=== PATIENT | female | born 2000 | race Hispanic/Latino ===

== ENCOUNTER 2022-05-02 21:14 | Emergency (ER) | payer SELFPAY ==
[2022-05-02 22:29] LABS: Urine Blood Trace-intact (Negative); Urine Glucose Negative (Negative); Urine Protein Negative (Negative); Urine Specific Gravity 1.025 (1.005-1.030)
[2022-05-02 22:30] LABS: Absolute Lymphocytes (CBC) 1.8 K/uL (0.7-4.9); Hematocrit 41.3 % (36.0-45.0); Lymphocytes % 31.7 % (15.3-44.8); MCV 88.3 fL (80-100); MPV 7.4 fL (7.6-11.3); RBC Red Blood Cell Count 4.67 M/uL (3.86-4.86)
[2022-05-02 22:35] LABS: Protime INR 1.15
[2022-05-02 22:42] LABS: Urine Specific Gravity/Preg 1.025 (1.005-1.030)
[2022-05-02 22:47] LABS: Albumin 4.1 g/dL (3.4-5.0); Bilirubin Direct 0.1 mg/dL (0-0.2); Bilirubin Total 0.5 mg/dL (0.2-1.0); Magnesium 2.1 mg/dL (1.6-2.4); Protein, Total 7.8 g/dL (6.4-8.2); Troponin High Sensitivity 4.8 pg/mL (<58.9)
[2022-05-02] MEDS ORDERED: NA CHLORIDE 0.9% 500 ML ONE (23:42)
[2022-05-02] MEDS ORDERED: KETOROLAC 30 MG/ML INJ ONE (23:42)
[2022-05-02] MEDS ORDERED: ONDANSETRON 4 MG/2 ML VIAL ONE (23:48)
--- NOTE | 2022-05-03 00:06 | ER ---
Nurse's Notes [facility] Name: Alecia Singer Age: 22 yrs Sex: Female : 2000 Arrival Date: 05/02/2022 Time: 21:16 Bed 14 Private MD: Diagnosis: Chest pain, unspecified Presentation: 05/02 21:20 Chief complaint: Patient states: "I am having chest pains under by left breast". as6 Coronavirus screen: At this time, the client does not indicate any symptoms associated with coronavirus-19. Ebola Screen: No symptoms or risks identified at this time. Initial Sepsis Screen: Does the patient meet any 2 criteria? No. Patient's initial sepsis screen is negative. Does the patient have a suspected source of infection? No. Patient's initial sepsis screen is negative. Risk Assessment: Do you want to hurt yourself or someone else? Patient reports no desire to harm self or others. Onset of symptoms was May 02, 2022. 21:20 Method Of Arrival: Ambulatory as6 21:20 Acuity: SHYLA 3 as6 Triage Assessment: 21:40 General: Appears in no apparent distress. Behavior is calm, cooperative. Pain: as6 Complains of pain in chest. Cardiovascular: Reports chest pain. 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 - Social history:: Smoking status: Reported history of juuling and/or vaping. Screenin:46 [facility] ED Fall Risk Assessment (Adult) History of falling in the last 3 months, pf1 including since admission No falls in past 3 months (0 pts) Confusion or Disorientation No (0 pts) Intoxicated or Sedated No (0 pts) Impaired Gait No (0 pts) Mobility Assist Device Used No (0 pt) Altered Elimination No (0 pt) Score/Fall Risk Level 0 - 2 = Low Risk Oriented to surroundings, Maintained a safe environment, Educated pt \\T\\ family on fall prevention, incl call for assistance when getting out of bed, Assessed \\T\\ reinforced patient's understanding of fall precautions, Provided non-skid footwear, Hourly rounding (assess needs \\T\\ fall precautionary measures) done, Used ambulatory aids as needed (educated on \\T\\ assisted with), Used gait belt as appropriate. Abuse screen: Denies threats or abuse. Nutritional screening: No deficits noted. Tuberculosis screening: No symptoms or risk factors identified. Assessment: 23:10 General: Appears in no apparent distress. comfortable, well groomed, well developed, pf1 Behavior is calm, cooperative, appropriate for age, quiet. 23:10 Pain: Complains of pain in chest Pain currently is 6 out of 10 on a pain scale. Pain pf1 began today this AM. Neuro: No deficits noted. Level of Consciousness is awake, alert, obeys commands, Oriented to person, place, time, situation. Cardiovascular: Chest pain. Respiratory: No deficits noted. Airway is patent Trachea midline Respiratory effort is even, unlabored, Respiratory pattern is regular, symmetrical. GI: Abdomen is flat, non-distended, Bowel sounds present X 4 quads. Reports nausea. : No deficits noted. EENT: No deficits noted. 23:10 Pain: Pain does not radiate. pf1 Vital Signs: 21:20 BP 129 / 81; Pulse 77; Resp 18 S; Temp 98.2(O); Pulse Ox 98% on R/A; Weight 76.2 kg as6 (R); Height 5 ft. 3 in. (160.02 cm) (R); Pain 9/10; 23:30 BP 107 / 76; Pulse 58; Resp 18; Pulse Ox 100% on R/A; Pain 6/10; pf1 05/03 00:23 BP 108 / 70; Pulse 59; Resp 18; Temp 98; Pulse Ox 100% on R/A; Pain 2/10; pf1 05/02 21:20 Body Mass Index 29.76 (76.20 kg, 160.02 cm) as6 ED Course: 05/02 21:16 Patient arrived in ED. jj6 21:24 Triage completed. as6 21:24 Arm band placed on. as6 21:25 Morgan Barbour PA is PHCP. cp 21:25 Adolfo Damon MD is Attending Physician. cp 22:20 Basic Metabolic Panel Sent. rv1 22:20 CBC with Diff Sent. rv1 22:20 D-Dimer Sent. rv1 22:20 LFT's Sent. rv1 22:21 Magnesium Sent. rv1 22:21 PT-INR Sent. rv1 22:21 Troponin HS Sent. rv1 22:29 Inserted saline lock: 20 gauge in right antecubital area, using aseptic technique. rv1 Blood collected. 23:11 Mercedes hodge, RN is Primary Nurse. pf1 23:30 Client placed on continuous cardiac and pulse oximetry monitoring. NIBP monitoring pf1 applied. groundwater monitoring technician on. 23:30 Patient has correct armband on for positive identification. Bed in low position. Call pf1 light in reach. 23:30 Patient maintains SpO2 saturation greater than 95% on room air. pf1 23:42 Urine --Ancillary (enter results) Sent. pf1 23:47 No provider procedures requiring assistance completed. pf1 03 00:22 IV discontinued, intact, bleeding controlled, No redness/swelling at site. Pressure pf1 dressing applied. Administered Medications: 05/02 23:41 Drug: Ketorolac 15 mg Route: IVP; Site: right antecubital; pf1 03 00:22 Follow up: Response: No adverse reaction; Marked relief of symptoms pf1 05/02 23:41 Drug: NS 0.9% 500 ml Route: IV; Rate: bolus; Site: right antecubital; pf1 05/03 00:22 Follow up: Response: No adverse reaction; IV Status: Completed infusion; IV Intake: pf1 500ml 05/02 23:44 Drug: Zofran (Ondansetron) 4 mg Route: IVP; Site: right antecubital; pf1 03 00:21 Follow up: Response: No adverse reaction; Nausea is decreased pf1 Medication: 00:27 VIS not applicable for this client. pf1 Intake: 00:22 IV: 500ml; Total: 500ml. pf1 Outcome: 00:05 Discharge ordered by . cp 00:23 Discharged to home ambulatory, with family. pf1 00:23 Condition: improved 00:23 Discharge instructions given to patient, Instructed on discharge instructions, follow up and referral plans. Demonstrated understanding of instructions, follow-up care, medications, Prescriptions given X 1. 00:27 Patient left the ED. pf1 Signatures: Morgan Barbour PA PA cp Jeffries, Jennifer jj6 Juan Galdamez RN RN as6 Mercedes hodge RN RN pf1 Iram Nova 1
--- NOTE | 2022-05-03 00:06 | EDPHYS ---
Physician Documentation [facility] Name: Alecia Singer Age: 22 yrs Sex: Female : 2000 Arrival Date: 05/02/2022 Time: 21:16 Bed 14 Private MD: ED Physician Adolfo Damon HPI: 05/02 21:45 This 22 yrs old Female presents to ER via Ambulatory with complaints of Chest cp Pain. 21:45 The patient or guardian reports chest pain that is located primarily in the anterior cp chest wall, left, behind left breast. The pain does not radiate. Associated signs and symptoms: The patient has no apparent associated signs or symptoms. The chest pain is described as aching. Duration: The patient or guardian reports a single episode, that is still ongoing, and unchanged. 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 - Social history:: Smoking status: Reported history of juuling and/or vaping. ROS: 21:50 Constitutional: Negative for body aches, chills, fever, poor PO intake. cp 21:50 Eyes: Negative for injury, pain, redness, and discharge. cp 21:50 ENT: Negative for drainage from ear(s), ear pain, sore throat, difficulty swallowing, difficulty handling secretions. 21:50 Cardiovascular: Positive for chest pain, Negative for edema, palpitations. 21:50 Respiratory: Negative for cough, shortness of breath, wheezing. 21:50 Abdomen/GI: Negative for abdominal pain, nausea, vomiting, and diarrhea. 21:50 Back: Negative for pain at rest, pain with movement, radiated pain. 21:50 Neuro: Negative for altered mental status, dizziness, headache, numbness, syncope, weakness. 21:50 All other systems are negative. Exam: 21:33 ECG was reviewed by the Attending Physician. cp 21:55 Constitutional: The patient appears in no acute distress, alert, awake, cp non-diaphoretic, non-toxic, well developed, well nourished. 21:55 Head/Face: Normocephalic, atraumatic. cp 21:55 Eyes: Periorbital structures: appear normal, Conjunctiva: normal, no exudate, no injection, Sclera: no appreciated abnormality, Lids and lashes: appear normal, bilaterally. 21:55 ENT: External ear(s): are unremarkable, Nose: is normal, Mouth: Lips: moist, Oral mucosa: pink and intact, moist, Posterior pharynx: is normal, airway is patent, no erythema, no exudate. 21:55 Neck: ROM/movement: is normal, is supple, without pain, no range of motions limitations. 21:55 Chest/axilla: Inspection: normal. 21:55 Cardiovascular: Rate: normal, Rhythm: regular. 21:55 Respiratory: the patient does not display signs of respiratory distress, Respirations: normal, no use of accessory muscles, no retractions, labored breathing, is not present, Breath sounds: are clear throughout, no decreased breath sounds, no stridor, no wheezing. 21:55 Abdomen/GI: Inspection: abdomen appears normal, Palpation: abdomen is soft and non-tender, in all quadrants. 21:55 Back: pain, is absent, ROM is normal. 21:55 Neuro: Orientation: to person, place \T\ time. Mentation: is normal, Motor: moves all fours, strength is normal, Sensation: is normal. Vital Signs: 21:20 BP 129 / 81; Pulse 77; Resp 18 S; Temp 98.2(O); Pulse Ox 98% on R/A; Weight 76.2 kg as6 (R); Height 5 ft. 3 in. (160.02 cm) (R); Pain 9/10; 23:30 BP 107 / 76; Pulse 58; Resp 18; Pulse Ox 100% on R/A; Pain 6/10; pf1 05/03 00:23 BP 108 / 70; Pulse 59; Resp 18; Temp 98; Pulse Ox 100% on R/A; Pain 2/10; pf1 05/02 21:20 Body Mass Index 29.76 (76.20 kg, 160.02 cm) as6 MDM: 05/02 21:36 Patient medically screened. cp 22:00 Differential diagnosis: abnormal EKG, acute myocardial infarction, chest wall pain, cp pleurisy, pneumonia, pneumothorax, pulmonary embolus. 05/03 00:05 Data reviewed: vital signs, nurses notes, lab test result(s), EKG, radiologic studies, cp plain films. 00:05 I considered the following discharge prescriptions or medication management in the emergency department Medications were administered in the Emergency Department. See MAR. Test considered but Not performed: CT: chest for pulmonary embolism. Counseling: I had a detailed discussion with the patient and/or guardian regarding: the historical points, exam findings, and any diagnostic results supporting the discharge/admit diagnosis, lab results, radiology results, to return to the emergency department if symptoms worsen or persist or if there are any questions or concerns that arise at home. Response to treatment: the patient's symptoms have markedly improved after treatment, and as a result, I will discharge patient. Special discussion: Based on the patient's history, exam, and Dx evaluation, there is no indication for emergent intervention or inpatient Tx. It is understood by the patient/guardian that if the Sx's persist or worsen they need to return immediately for re-evaluation. 03 21:38 Order name: EKG; Complete Time: 21:39 cp 05/02 21:38 Order name: EKG - Nurse/Tech; Complete Time: 21:39 cp 05/02 21:38 Order name: Urine Test (obtain specimen); Complete Time: 22:29 cp 05/02 21:38 Order name: Urine Dipstick-Ancillary (obtain specimen); Complete Time: 22:29 cp 05/02 21:52 Order name: Basic Metabolic Panel cp 05/02 21:52 Order name: CBC with Diff cp 03 21:52 Order name: D-Dimer cp 05/02 21:52 Order name: LFT's cp 05/02 21:52 Order name: Magnesium cp 05/02 21:52 Order name: PT-INR cp 05/02 21:52 Order name: Troponin HS cp 05/02 21:52 Order name: XRAY Chest (1 view) cp 05/02 21:52 Order name: Cardiac monitoring cp 03 21:52 Order name: IV Saline Lock; Complete Time: 22:21 cp 05/02 21:52 Order name: Labs collected and sent; Complete Time: 22:21 cp 05/02 21:52 Order name: O2 Per Protocol; Complete Time: 23:11 cp 05/02 21:52 Order name: O2 Sat Monitoring; Complete Time: 23:11 cp 05/02 22:29 Order name: Urine Dipstick-Ancillary; Complete Time: 23:10 EDMS 05/02 23:10 Interpretation: Normal except: UBLD Trace-intact. cp 05/02 22:32 Order name: Urine --Ancillary (enter results) ds4 05/02 22:33 Order name: CBC with Automated Diff; Complete Time: 23:10 EDMS 05/02 23:10 Interpretation: Normal except: MPV 7.4. cp 05/02 22:36 Order name: Protime (+INR); Complete Time: 23:10 EDMS 05/02 23:10 Interpretation: Reviewed. cp 05/02 22:36 Order name: D-Dimer; Complete Time: 23:10 EDMS 05/02 23:11 Interpretation: Reviewed. cp 05/02 22:42 Order name: Urine --Ancillary; Complete Time: 23:10 EDMS 05/02 22:48 Order name: Basic Metabolic Panel; Complete Time: 23:10 EDMS 05/02 22:48 Order name: Liver (Hepatic) Function; Complete Time: 23:10 EDMS 05/02 22:48 Order name: Troponin High Sensitivity; Complete Time: 23:10 EDMS 05/02 22:48 Order name: Magnesium; Complete Time: 23:10 EDMS EC/05 21:33 Rate is 76 beats/min. Rhythm is regular. NC interval is normal. QRS interval is normal. cp QT interval is normal. T waves are Inverted in lead aVR. Interpreted by me. Reviewed by me. Administered Medications: 23:41 Drug: Ketorolac 15 mg Route: IVP; Site: right antecubital; pf1 05/03 00:22 Follow up: Response: No adverse reaction; Marked relief of symptoms pf1 05/02 23:41 Drug: NS 0.9% 500 ml Route: IV; Rate: bolus; Site: right antecubital; pf1 05/03 00:22 Follow up: Response: No adverse reaction; IV Status: Completed infusion; IV Intake: pf1 500ml 05/02 23:44 Drug: Zofran (Ondansetron) 4 mg Route: IVP; Site: right antecubital; pf1 05/03 00:21 Follow up: Response: No adverse reaction; Nausea is decreased pf1 Disposition: 02:33 Co-signature as Attending Physician, Adolfo Damon MD I reviewed the patient's care sp4 provided by the Advanced Practice Provider and agree with the diagnosis and treatment plan. Disposition Summary: 05/03/22 00:05 Discharge Ordered Location: Home cp Problem: new cp Symptoms: have improved cp Condition: Stable cp Diagnosis - Chest pain, unspecified cp Followup: cp - With: Private Physician - When: 2 - 3 days - Reason: Recheck today's complaints Discharge Instructions: - Discharge Summary Sheet cp - Chest Wall Pain cp - Form - Return To Work pf1 Forms: - Medication Reconciliation Form cp - Thank You Letter cp - Antibiotic Education cp - Prescription Opioid Use cp Prescriptions: - ketorolac 10 mg Oral tablet - take 1 tablet by ORAL route every 6 hours As needed not to exceed 40 mg in cp 24hrs; 6 tablet; Refills: 0, Product Selection Permitted Signatures: Dispatcher [employer] EDUT Morgan Barbour PA PA cp Juan Galdamez RN RN as6 Mercedes hodge RN RN pf1 Adolfo Damon MD MD sp4
[2022-05-03 00:52] VITALS: O2SAT 100
[2022-05-03 00:54] VITALS: BP 108/70; TEMP 98
--- NOTE | 2022-05-03 13:27 | RAD REPORT ---
EXAM DESCRIPTION: RAD - Chest Single View - 05/02/2022 10:53 pm CLINICAL HISTORY: Chest pain.. TECHNIQUE: AP portable chest x-ray upright on 05/02/2022, at 22: 37. COMPARISON: None. FINDINGS: Heart: Normal size and configuration. Mediastinal Structures: Normal and midline.. Lung Murray: No active disease. Pulmonary Vascularity: Normal. Pleural Space: No active disease. Bony Structures: Normal. IMPRESSION: Normal study. 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 The interpreting radiologist is fully responsible for the content of the report.
--- NOTE | 2022-05-03 16:37 | EKG ---
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
== END 2022-05-03 00:27 | disposition home or self-care (01) ==
LOC: ER 21:14
DX: R07.89 Other chest pain (principal)
CPT/HCPCS: 36415; 71045; 80048; 80076; 81003; 81025; 83735; 84484; 85025; 85379; 85610; 93005; 96361; 96374; 96375; 99285; J2405; J7040

== ENCOUNTER → 2023-03-15 | Emergency (ER) | payer OTHER ==
[~2023-03-15] MED LIST: ACETAMINOPHEN 500 MG TAB ONE; CEFTRIAXONE 1000 MG/VIAL ONE; FENTANYL CITR 100 MCG/2 ML ONE; KCL 20 MEQ/100 mL IVPB 100 ML IV ONE; NA CHLORIDE 0.9% 1,000 ML ONE; NA CHLORIDE 0.9% 2,000 ML ONE; NA CHLORIDE 0.9% 250 ML ONE; NITROFURAN MACRO 100 MG CAP PO ONE; ONDANSETRON 4 MG (ODT) TAB ONE
[2023-03-15 20:09] LABS: Specific Gravity 1.028 (1.005-1.030)
[2023-03-15 20:23] LABS: Specific Gravity 1.028 (1.005-1.030); Urine Bacteria <20 /HPF (<20); Urine Bilirubin NEGATIVE (Negative); Urine Blood 2+ (Negative); Urine Clarity Extremely Turbid (Clear); Urine Color Yellow (Yellow); Urine Crystals Unidentified Few /HPF (None Seen); Urine Glucose NEGATIVE (Negative); Urine Mucus 4+ /HPF (None Seen); Urine Protein 1+ (Negative); Urine RBC 21-50 /HPF (None Seen); Urine Urobilinogen Normal (Normal); Urine WBC Clump Few /HPF (None Seen)
--- NOTE | 2023-03-15 20:36 | ER ---
Nurse's Notes [facility] Name: Alecia Singer Age: 23 yrs Sex: Female : 2000 Arrival Date: 03/15/2023 Time: 16:57 Bed 9 Private MD: Diagnosis: UTI/ Urinary tract infection, site not specified;Acute upper respiratory infection, unspecified Presentation: 03/15 17:16 Chief complaint: Patient states: she has been having fever, body aches and headache for ap3 "a few days". Patient was evaluated at an urgent care previously, and tested negative for FLU and COVID. Coronavirus screen: Client presents with at least one sign or symptom that may indicate coronavirus-19. Ebola Screen: No symptoms or risks identified at this time. Initial Sepsis Screen: Does the patient meet any 2 criteria? No. Patient's initial sepsis screen is negative. Does the patient have a suspected source of infection? No. Patient's initial sepsis screen is negative. Risk Assessment: Do you want to hurt yourself or someone else? Patient reports no desire to harm self or others. Onset of symptoms is unknown. 17:16 Method Of Arrival: Ambulatory ap3 17:16 Acuity: SHYLA 4 ap3 Triage Assessment: 17:20 General: Appears in no apparent distress. Behavior is calm, cooperative, appropriate ap3 for age. Pain: Complains of pain in head and generalized body aches. Neuro: Level of Consciousness is awake, alert, obeys commands, Oriented to person, place, time, situation, Appropriate for age Reports headache. Cardiovascular: Patient's skin is warm and dry. Respiratory: Airway is patent Respiratory effort is even, unlabored, Respiratory pattern is regular, symmetrical. Historical: - Allergies: 17:20 PENICILLINS; ap3 20:34 SULFA SULFONAMIDE ANTIBIOTICS; rv 20:34 Sulfa (Sulfonamide Antibiotics); rv - PMHx: 17:20 depressive disorder; ap3 - Immunization history:: Client reports having NOT received the Covid vaccine. Flu vaccine is not up to date. - Social history:: Smoking status: Reported history of juuling and/or vaping. Patient uses alcohol, only on a social basis. Screenin:21 [facility] ED Fall Risk Assessment (Adult) History of falling in the last 3 months, ap3 including since admission No falls in past 3 months (0 pts). Abuse screen: Denies threats or abuse. Nutritional screening: No deficits noted. Tuberculosis screening: No symptoms or risk factors identified. Vital Signs: 17:16 BP 122 / 76; Pulse 91; Resp 16; Temp 98.9(O); Pulse Ox 100% ; Weight 73.94 kg; Height 5 ap3 ft. 3 in. ; Pain 8/10; 20:02 Pulse 67; Resp 16; Temp 98.7; Pulse Ox 100% ; rv 20:16 BP 101 / 57; rv 17:16 Body Mass Index 28.87 (73.94 kg, 160.02 cm) ap3 17:16 Pain Scale: Adult ap3 [place] Coma Score: 20:02 Eye Response: spontaneous(4). Motor Response: obeys commands(6). Verbal Response: rv oriented(5). Total: 15. ED Course: 17:00 Patient arrived in ED. mr 17:02 Adele Miller FNP-C is [facility]. kb 17:02 Jhony Samuels MD is Attending Physician. kb 17:20 Triage completed. ap3 17:21 Arm band placed on right wrist. ap3 20:03 Patient has correct armband on for positive identification. Client placed on continuous rv cardiac and pulse oximetry monitoring. NIBP monitoring applied. 20:03 No provider procedures requiring assistance completed. Patient did not have IV access rv during this emergency room visit. 20:12 Urinalysis w/ reflexes Sent. oe 20:16 Daniel Dinh RN is Primary Nurse. rv Administered Medications: 21:04 Drug: Macrobid PO 100 mg PO once; administer with food Route: PO; rv 21:04 Follow up: Response: Medication administered at discharge. rv Medication: 20:03 VIS not applicable for this client. rv Outcome: 20:35 Discharged to home ambulatory, rv 20:35 Condition: good 20:35 Discharge instructions given to patient, Instructed on discharge instructions, follow up and referral plans. medication usage, Demonstrated understanding of instructions, follow-up care, medications, Prescriptions given X 1, 20:35 Discharge ordered by MD. kb 21:05 Patient left the ED. rv Signatures: Adele Miller FNP-C [employer]-Sarah Laboy, Reg Reg Justice Carpenter Amanda, ADELAIDE RN ap3 Daniel Dinh, RN RN rv
--- NOTE | 2023-03-15 20:36 | EDPHYS ---
Physician Documentation [facility] Name: Alecia Singer Age: 23 yrs Sex: Female : 2000 Arrival Date: 03/15/2023 Time: 16:57 Bed 9 Private MD: ED Physician Jhony Samuels Historical: - Allergies: 03/15 17:20 PENICILLINS; ap3 20:34 SULFA SULFONAMIDE ANTIBIOTICS; rv 20:34 Sulfa (Sulfonamide Antibiotics); rv - PMHx: 17:20 depressive disorder; ap3 - Immunization history:: Client reports having NOT received the Covid vaccine. Flu vaccine is not up to date. - Social history:: Smoking status: Reported history of juuling and/or vaping. Patient uses alcohol, only on a social basis. Vital Signs: 17:16 BP 122 / 76; Pulse 91; Resp 16; Temp 98.9(O); Pulse Ox 100% ; Weight 73.94 kg; Height 5 ap3 ft. 3 in. ; Pain 8/10; 20:02 Pulse 67; Resp 16; Temp 98.7; Pulse Ox 100% ; rv 20:16 BP 101 / 57; rv 17:16 Body Mass Index 28.87 (73.94 kg, 160.02 cm) ap3 17:16 Pain Scale: Adult ap3 Ning Coma Score: 20:02 Eye Response: spontaneous(4). Motor Response: obeys commands(6). Verbal Response: rv oriented(5). Total: 15. MDM: 17:11 Patient medically screened. kb 03/15 17:21 Order name: Flu; Complete Time: 18:34 kb 03/15 17:21 Order name: Test, Urine; Complete Time: 20:30 kb 03/15 17:21 Order name: Urinalysis w/ reflexes; Complete Time: 20:23 kb Administered Medications: 21:04 Drug: Macrobid PO 100 mg PO once; administer with food Route: PO; rv 21:04 Follow up: Response: Medication administered at discharge. rv Disposition Summary: 03/15/23 20:35 Discharge Ordered Notes: Location: Home kb Condition: Stable kb Diagnosis - UTI/ Urinary tract infection, site not specified kb - Acute upper respiratory infection, unspecified kb Followup: kb - With: Emergency Department - When: As needed - Reason: Worsening of condition Followup: kb - With: Private Physician - When: 2 - 3 days - Reason: Recheck today's complaints, Continuance of care, Re-evaluation by your physician Discharge Instructions: - Discharge Summary Sheet kb - Urinary Tract Infection, Adult, [id number] kb - Upper Respiratory Infection, Adult, [id number] kb - Viral Respiratory Infection, [id number] kb Forms: - Medication Reconciliation Form kb - Thank You Letter kb - Antibiotic Education kb - Prescription Opioid Use kb - Patient Portal Instructions kb - Leadership Thank You Letter kb Prescriptions: - Macrobid 100 mg Oral Capsule - take 1 capsule ORAL route every 12 hours for 10 days; 20 capsule; Refills: 0, kb Product Selection Permitted Signatures: Dispatcher [employer] EDAdele Joe, Radha Daniel, RN RN ap3 Daniel Dinh RN RN rv
[2023-03-15 21:29] VITALS: BP 101/57; TEMP 98.7; O2SAT 100
== END ==
LOC: ER 16:57
DX: N39.0 Urinary tract infection, site not specified (principal); J06.9 Acute upper respiratory infection, unspecified; Z88.0 Allergy status to penicillin; Z88.2 Allergy status to sulfonamides; Z28.310 Unvaccinated for COVID-19
CPT/HCPCS: 81001; 81025; 87804

== ENCOUNTER 2023-03-17 13:06 | Inpatient (IN) | payer OTHER ==
[2023-03-17 14:00] LABS: Absolute Lymphocytes (CBC) 1.2 K/uL (0.7-4.9); Hematocrit 34.3 % (36.0-45.0); Lymphocytes % 6.1 % (15.3-44.8); MCV 86.8 fL (80-100); MPV 7.6 fL (7.6-11.3); Platelets 263 thou/uL (152-406); RBC Red Blood Cell Count 3.95 M/uL (3.86-4.86)
[2023-03-17 14:01] LABS: Protime INR 1.57
[2023-03-17 14:13] LABS: Albumin 3.1 g/dL (3.4-5.0); Bilirubin Total 0.6 mg/dL (0.2-1.0); Potassium 3.1 mEq/L (3.5-5.1); Protein, Total 7.5 g/dL (6.4-8.2)
[2023-03-17 14:40] LABS: Specific Gravity 1.018 (1.005-1.030); Transitional Epithelial <5 /HPF (None Seen); Urine Bacteria <20 /HPF (<20); Urine Bilirubin NEGATIVE (Negative); Urine Blood Trace (Negative); Urine Clarity Extremely Turbid (Clear); Urine Color Yellow (Yellow); Urine Glucose NEGATIVE (Negative); Urine Mucus Slight /HPF (None Seen); Urine Protein 1+ (Negative); Urine Urobilinogen Normal (Normal); Urine pH 5.5 (5.0-7.0)
--- NOTE | 2023-03-17 15:53 | RAD REPORT ---
EXAM DESCRIPTION: CT - Abdomen Pelvis W Contrast - 03/17/2023 3:04 pm CLINICAL HISTORY: Abdominal pain/back pain COMPARISON: none. TECHNIQUE: Computed axial tomography of the abdomen pelvis was obtained. 100 cc Isovue-300 was admin istered intravenously. Oral contrast was not requested which limits evaluation of bowel and appendix All CT scans are performed using dose optimization technique as appropriate and may include automated exposure control or mA/KV adjustment according to patient size. FINDINGS: Several small low-density areas left kidney reaching the periphery consistent with inflamm ation. No abscess. Tiny nonobstructing right renal calculus The liver, spleen, pancreas, and adrenals appear unremarkable. There is no evidence of diverticulitis. Normal appendix. No adnexal mass IMPRESSION: Mild to moderate left pyelonephritis
--- NOTE | 2023-03-17 16:38 | EDPHYS ---
Physician Documentation [facility] Name: Alecia Singer Age: 23 yrs Sex: Female : 2000 Arrival Date: 03/17/2023 Time: 13:06 Bed 10 Private MD: ED Physician Morgan Alvares HPI: 03/17 13:25 This 23 yrs old Female presents to ER via Ambulatory with complaints of Flu cp Symptoms. 13:25 The patient presents with pain that is acute. cp 13:25 The symptoms are located in the mid and low back. Associated signs and symptoms: cp Pertinent positives: fever, headache. Severity of symptoms: in the emergency department the symptoms are unchanged, despite home interventions. The patient has been recently seen at the [facility] Emergency Department, yesterday, for similar complaints diagnosed with UTI and prescribed antibiotic. Historical: - Allergies: 13:55 PENICILLINS; iw 13:55 Sulfa (Sulfonamide Antibiotics); iw - Home Meds: 13:55 fluoxetine 20 mg Oral cap 1 cap once daily [Active]; iw - PMHx: 13:55 depressive disorder; iw ROS: 13:30 Constitutional: Positive for body aches, chills, fever, cp 13:30 Eyes: Negative for injury, pain, redness, and discharge, cp 13:30 ENT: Negative for drainage from ear(s), ear pain, sore throat, difficulty swallowing, difficulty handling secretions, 13:30 Neck: Positive for pain with movement, pain at rest, Negative for stiffness, 13:30 Respiratory: Negative for cough, shortness of breath, wheezing, 13:30 Abdomen/GI: Positive for nausea and vomiting, Negative for diarrhea, constipation, 13:30 Back: Positive for pain at rest, pain with movement, 13:30 Neuro: Positive for headache, Negative for altered mental status, cp 13:30 All other systems are negative, Exam: 13:35 Constitutional: The patient appears in no acute distress, alert, awake, non-toxic, well cp developed, well nourished, obviously ill, 13:35 Head/Face: Normocephalic, atraumatic. cp 13:35 Eyes: Periorbital structures: appear normal, Conjunctiva: normal, no exudate, no injection, Sclera: no appreciated abnormality, Lids and lashes: appear normal, bilaterally, 13:35 ENT: External ear(s): are unremarkable, Nose: is normal, Mouth: Lips: moist, Oral mucosa: pink and intact, moist, Posterior pharynx: Airway: no evidence of obstruction, patent, 13:35 Neck: ROM/movement: is normal, is supple, no meningismus, no nuchal rigidity, 13:35 Chest/axilla: Inspection: normal, 13:35 Cardiovascular: Rate: tachycardic, Rhythm: regular, Edema: is not appreciated, JVD: is not appreciated, 13:35 Respiratory: the patient does not display signs of respiratory distress, Respirations: normal, no use of accessory muscles, no retractions, labored breathing, is not present, Breath sounds: are clear throughout, no decreased breath sounds, no stridor, no wheezing, 13:35 Abdomen/GI: Inspection: abdomen appears normal, Palpation: abdomen is soft and cp non-tender, in all quadrants, 13:35 Back: CVA tenderness, that is moderate, is noted bilaterally, cp 13:35 Skin: cellulitis, is not appreciated, no rash present. 13:35 Neuro: Orientation: to person, place \T\ time. Mentation: is normal, Motor: moves all fours, strength is normal, Sensation: is normal, 14:35 ECG was reviewed by the Attending Physician. cp Vital Signs: 13:18 BP 121 / 69; Pulse 116; Resp 20; Temp 103.1; Pulse Ox 100% ; Weight 73.48 kg; Height 5 bc6 ft. 2 in. ; 14:44 BP 110 / 61; Pulse 105; Resp 16; Temp 98.3(O); Pulse Ox 100% on R/A; Pain 10/10; iw 17:00 BP 113 / 67; Pulse 95; Resp 16; Temp 98.5(TE); Pulse Ox 100% on R/A; iw 13:18 Body Mass Index 29.63 (73.48 kg, 157.48 cm) bc6 14:44 Pain Scale: Adult iw MDM: 13:30 Patient medically screened. cp 16:00 Data reviewed: vital signs, nurses notes, lab test result(s), radiologic studies, CT cp scan. 16:00 Management of patient was discussed with the following: Hospitalist: Iván Fink NP cp will admit to DR Pérez after discussion. I considered the following discharge prescriptions or medication management in the emergency department Medications were administered in the Emergency Department. See MAR. Counseling: I had a detailed discussion with the patient and/or guardian regarding the historical points, exam findings, and any diagnostic results supporting the discharge/admit diagnosis, lab results, radiology results. 03/17 13:21 Order name: Blood Culture Adult (2) cp 03/17 13:21 Order name: CBC with Diff cp 03/17 14:45 Interpretation: Normal except: WBC 19.80; HGB 11.6; HCT 34.3; JAZZMINE% 86.6; LYM% 6.1; NEUT cp A 17.2; MNA 1.4. 03/17 13:21 Order name: CMP; Complete Time: 14:45 cp 03/17 13:21 Order name: Lactate w/ 2H reflex if indic.; Complete Time: 14:45 cp 03/17 13:21 Order name: Protime (+inr); Complete Time: 14:45 cp 03/17 13:21 Order name: Urinalysis w/ reflexes; Complete Time: 14:45 cp 03/17 13:21 Order name: COVID-19 SARS RT PCR; Complete Time: 14:45 cp 03/17 14:47 Order name: Urine Culture EDMS 03/17 14:46 Order name: CT Abd/Pelvis - IV Contrast Only; Complete Time: 15:58 cp 03/17 15:58 Interpretation: Report reviewed. 03/17 13:21 Order name: EKG; Complete Time: 13:21 cp 03/17 13:21 Order name: Accucheck; Complete Time: 14:45 cp 03/17 13:21 Order name: EKG - Nurse/Tech; Complete Time: 14:30 cp 03/17 13:21 Order name: IV Saline Lock - Large Bore; Complete Time: 13:49 cp 03/17 13:21 Order name: Labs collected and sent; Complete Time: 13:49 cp 03/17 13:21 Order name: O2 Per Protocol; Complete Time: 13:49 cp 03/17 13:21 Order name: O2 Sat Monitoring; Complete Time: 13:49 cp 03/17 13:21 Order name: Vital Signs; Complete Time: 14:14 cp EC:35 Rate is 108 beats/min. Rhythm is regular. SD interval is normal. QRS interval is cp normal. QT interval is normal. Interpreted by me. Reviewed by me. Administered Medications: 13:40 Drug: Ondansetron PO 4 mg PO once Route: PO; iw 13:40 Drug: Acetaminophen PO 1000 mg PO once Route: PO; iw 18:08 Follow up: Response: No adverse reaction; Temperature is decreased iw 14:14 Drug: NS 0.9% IV (30 ml/kg) 30 ml/kg IV at bolus once; Sepsis Protocol Route: IV; Rate: iw bolus; Site: right antecubital; 17:00 Follow up: IV Status: Completed infusion iw 15:01 Drug: fentaNYL (PF) IVP 25 mcg IVP once Route: IVP; Site: right antecubital; iw 18:09 Follow up: Response: No adverse reaction; Pain is decreased iw 15:10 Drug: Rocephin IV 1 grams IV at calculated rate once; Given slow IV push per pharmacy iw instructions Route: IV; Rate: calculated rate; Site: right antecubital; 15:15 Follow up: IV Status: Completed infusion iw 17:47 Drug: Potassium Chloride IV 20 mEq IV at calculated rate once; administer over 1-2 iw hours Route: IV; Rate: calculated rate; Site: right antecubital; 17:47 Drug: NS 0.9% IV 1000 ml IV at 150 ml/hr continuous Route: IV; Rate: 150 ml/hr; Site: iw right antecubital; Disposition Summary: 03/17/23 16:37 Hospitalization Ordered Notes: Hospitalization Status: Inpatient Admission cp Provider: Tong Pérez cp Location: Telemetry/MedSurg (Inpatient) cp Condition: Stable cp Problem: new cp Symptoms: have improved cp Bed/Room Type: Standard cp Room Assignment: 408(03/17/23 18:16) iw Diagnosis - Pyelonephritis acute cp - Nausea with vomiting, unspecified cp - Fever, unspecified cp Forms: - Medication Reconciliation Form cp - SBAR form cp - Leadership Thank You Letter cp Signatures: Dispatcher [employer] Jeanette Lee RN RN iw Iván Fink, PRODUCTION CONTROL ANALYST-C PRODUCTION CONTROL ANALYST-Cla1 Morgan Barbour PA PA cp Melodie Hernandez6 Corrections: (The following items were deleted from the chart) 17:11 13:21 Cardiac monitoring ordered. cp iw 17:31 16:37 cp bc6 18:16 17:31 414 bc6 iw
--- NOTE | 2023-03-17 16:38 | ER ---
Nurse's Notes [facility] Name: Alecia Singer Age: 23 yrs Sex: Female : 2000 Arrival Date: 03/17/2023 Time: 13:06 Bed 10 Private MD: Diagnosis: Pyelonephritis acute;Nausea with vomiting, unspecified;Fever, unspecified Presentation: 03/17 13:22 Chief complaint: Patient states: headache, neck pain, back pain , joints are hurting , iw fever , started Tuesday , was seen here yesterday and was negative for flu/covid , had a uti, taking ibuprofen and tylenol and macrobid for UTI. Coronavirus screen: At this time, the client does not indicate any symptoms associated with coronavirus-19. Ebola Screen: Patient negative for fever greater than or equal to 101.5 degrees Fahrenheit, and additional compatible Ebola Virus Disease symptoms Patient denies exposure to infectious person. Patient denies travel to an Ebola-affected area in the 21 days before illness onset. No symptoms or risks identified at this time. 13:22 Method Of Arrival: Ambulatory iw 13:22 Acuity: SHYLA 3 iw Historical: - Allergies: 13:55 PENICILLINS; iw 13:55 Sulfa (Sulfonamide Antibiotics); iw - Home Meds: 13:55 fluoxetine 20 mg Oral cap 1 cap once daily [Active]; iw - PMHx: 13:55 depressive disorder; iw Screenin:47 [facility] ED Fall Risk Assessment (Adult) Score/Fall Risk Level 0 - 2 = Low Risk. Abuse iw screen: Denies threats or abuse. Denies injuries from another. Nutritional screening: No deficits noted. Tuberculosis screening: No symptoms or risk factors identified. Assessment: 14:46 Reassessment: Patient appears in no apparent distress at this time. Patient and/or iw family updated on plan of care and expected duration. Pain level reassessed. pt c/o headache /10, temp normalized , pillow given Core Page PA notified of pt pain. 16:03 Reassessment: Patient appears in no apparent distress at this time. Patient and/or iw family updated on plan of care and expected duration. Pain level reassessed. Patient is alert, oriented x 3, equal unlabored respirations, skin warm/dry/pink. Patient states feeling better. Patient states symptoms have improved. 18:07 Reassessment: Patient appears in no apparent distress at this time. Patient and/or iw family updated on plan of care and expected duration. Pain level reassessed. Patient is alert, oriented x 3, equal unlabored respirations, skin warm/dry/pink. Pain: Complains of pain in head. Vital Signs: 13:18 BP 121 / 69; Pulse 116; Resp 20; Temp 103.1; Pulse Ox 100% ; Weight 73.48 kg; Height 5 bc6 ft. 2 in. ; 14:44 BP 110 / 61; Pulse 105; Resp 16; Temp 98.3(O); Pulse Ox 100% on R/A; Pain 10/10; iw 17:00 BP 113 / 67; Pulse 95; Resp 16; Temp 98.5(TE); Pulse Ox 100% on R/A; iw 13:18 Body Mass Index 29.63 (73.48 kg, 157.48 cm) bc6 14:44 Pain Scale: Adult iw ED Course: 13:08 Patient arrived in ED. rg4 13:08 Morgan Barbour PA is PHCP. cp 13:08 Bhargav Lowe is Attending Physician. cp 13:08 Morgan Alvares MD is Attending Physician. cp 13:24 Triage completed. iw 13:30 Jeanette Wolfe, RN is Primary Nurse. iw 14:02 Inserted saline lock: 20 gauge in right antecubital area, using aseptic technique. ls5 Blood collected. 14:46 Patient has correct armband on for positive identification. Provided Education on: . iw Pulse ox on. NIBP on. 15:05 CT Abd/Pelvis - IV Contrast Only In Process Unspecified. EDMS 16:36 Tong Pérez MD is Hospitalizing Provider. cp 18:08 No provider procedures requiring assistance completed. iw Administered Medications: 13:40 Drug: Ondansetron PO 4 mg PO once Route: PO; iw 13:40 Drug: Acetaminophen PO 1000 mg PO once Route: PO; iw 18:08 Follow up: Response: No adverse reaction; Temperature is decreased iw 14:14 Drug: NS 0.9% IV (30 ml/kg) 30 ml/kg IV at bolus once; Sepsis Protocol Route: IV; Rate: iw bolus; Site: right antecubital; 17:00 Follow up: IV Status: Completed infusion iw 15:01 Drug: fentaNYL (PF) IVP 25 mcg IVP once Route: IVP; Site: right antecubital; iw 18:09 Follow up: Response: No adverse reaction; Pain is decreased iw 15:10 Drug: Rocephin IV 1 grams IV at calculated rate once; Given slow IV push per pharmacy iw instructions Route: IV; Rate: calculated rate; Site: right antecubital; 15:15 Follow up: IV Status: Completed infusion iw 17:47 Drug: Potassium Chloride IV 20 mEq IV at calculated rate once; administer over 1-2 iw hours Route: IV; Rate: calculated rate; Site: right antecubital; 17:47 Drug: NS 0.9% IV 1000 ml IV at 150 ml/hr continuous Route: IV; Rate: 150 ml/hr; Site: iw right antecubital; Outcome: 16:37 Decision to Hospitalize by Provider. cp 18:27 Patient left the ED. iw Signatures: Dispatcher [employer] EDJeanette Bermudez RN RN iw Morgan Barbour PA PA Mariola Gates rg4 Morales Schwab ls5 Melodie Hernandez 6 Corrections: (The following items were deleted from the chart) 17:03 17:00 BP 113 / 67; Pulse 95bpm; Resp 16bpm; Pulse Ox 100% RA; iw iw
--- NOTE | 2023-03-17 17:07 | P.HP ---
Certification for Inpatient Patient admitted to: Inpatient With expected LOS: >2 Midnights Patient will require the following post-hospital care: None Practitioner: I am a practitioner with admitting privileges, knowledge of patient current condition, hospital course, and medical plan of care. Services: Services provided to patient in accordance with Admission requirements found in Title 42 Section 412.3 of the Code of Federal Regulations <Iván Fink Fozia Gan - Last Filed: 03/17/23 17:05> Patient History Date of Service: 03/17/23 Reason for admission: Sepsis, pyelonephritis History of Present Illness: 23-year-old otherwise healthy female presents emergency department chief complaint of fevers, malaise. She reports has been running fevers since Tuesday Tmax 103, denies urinary symptoms did have some upper respiratory symptoms earlier in the week. She was seen in the emergency department on 03/15/2023 and prescribed Macrobid for urinary tract infection. She presented again today feeling worse with high fevers. She was evaluated in the emergency department today her labs are significant for leukocytosis white blood cell count 19.8 potassium 3.1 urinalysis concerning for urinary tract infection negative for COVID. CT abdomen pelvis with IV contrast was performed with close concerning for suspected mild to moderate left-sided abdominal. Initial lactate was 1.2 and blood cultures were obtained prior to antibiotic administration. Patient admitted for sepsis, left-sided pyelonephritis. - Past Medical/Surgical History -: None -: Tonsillectomy Psychosocial/ Personal History: Works with the [employer], lives at home with family - Family History Family History: Reviewed- Non-Contributory - Social History Smoking Status: Never smoker Alcohol use: Yes CD- Drugs: No Caffeine use: Yes Place of Residence: Home <Iván Fink - Last Filed: 03/17/23 17:05> Date of Service: 03/17/23 <Tong Pérez - Last Filed: 03/17/23 22:30> Review of Systems 10-point ROS is otherwise unremarkable General: Fever, Chills, Malaise Musculoskeletal: Back Pain <Iván Fink - Last Filed: 03/17/23 17:05> Physical Examination - Physical Exam General: Alert, In no apparent distress, Oriented x3 HEENT: Atraumatic, PERRLA Neck: Supple, 2+ carotid pulse no bruit, No LAD Respiratory: Clear to auscultation bilaterally, Normal air movement Cardiovascular: Regular rate/rhythm, Normal S1 S2 Gastrointestinal: Normal bowel sounds, Tenderness (Mild bilateral CVA tenderness) Musculoskeletal: No tenderness Integumentary: No rashes Neurological: Normal speech, Normal strength at 5/5 x4 extr, Normal tone, Normal affect - Studies Laboratory Data (last 24 hrs) 03/17/23 03/17/23 03/17/23 13:45 13:45 13:45 WBC 19.80 H Hgb 11.6 L Hct 34.3 L Plt Count 263 PT 17.0 H INR 1.57 Sodium 138 Potassium 3.1 L BUN 7 Creatinine 0.88 Glucose 109 H Total Bilirubin 0.6 AST 20 ALT 26 Alkaline Phosphatase 62 <Iván Fink - Last Filed: 03/17/23 17:05> - Studies Laboratory Data (last 24 hrs) 03/17/23 03/17/23 03/17/23 13:45 13:45 13:45 WBC 19.80 H Hgb 11.6 L Hct 34.3 L Plt Count 263 PT 17.0 H INR 1.57 Sodium 138 Potassium 3.1 L BUN 7 Creatinine 0.88 Glucose 109 H Total Bilirubin 0.6 AST 20 ALT 26 Alkaline Phosphatase 62 <Tong Pérez - Last Filed: 03/17/23 22:30> Assessment and Plan - Plan Assessment: Sepsis secondary to left-sided pyelonephritis Hypokalemia Plan: Sepsis secondary to left-sided pyelonephritis Lactate less than 2, currently no hypotension continue IV fluids Blood cultures obtained in ED before antibiotic administration continue empiric antibioticsRocephin follow blood cultures Hypokalemia Repleted in ED Potassium protocol placed DVT PPX: Lovenox Code status: Full Discharge Plan: Home Plan to discharge in: 72 Hours - Advance Directives Does patient have a Living Will: No Does patient have a Durable POA for Healthcare: No - Code Status/Comfort Care Code Status Assessed: Yes (Full code) Critical Care: No Time Spent Managing Pts Care (In Minutes): 70 <Iván Fink - Last Filed: 03/17/23 17:05> - Plan Patient seen and examined in ED with MAIL DELIVERER Danae. Plan of care reviewed and agree as noted above. sepsis secondary to pyelo, no obstruction empiric rocephin for now; no prior h/o UTIs, denies any other PMH cultures obtained in ED unfortunately no culture was sent from [facility] 2 days ago anticipate dc home in ~2-3 days - once symptoms improve / afebrile, and have culture sensitivities <Tong Pérez - Last Filed: 03/17/23 22:30>
[2023-03-17] MEDS: NA CHLORIDE 0.9% 1,000 ML IV SCH (19:16)
[2023-03-17 19:32] VITALS: BMI 28.7
[2023-03-17] MEDS: HYDROCODONE/APAP 5/325 MG TAB PO PRN (19:50)
[2023-03-17 19:51] LABS: Blood Morphology Comment NOT SEEN (NOT SEEN); Platelet Estimate ADEQ; White Blood Cell Scan OK (OK)
[2023-03-17] MEDS: CEFTRIAXONE 2,000 MG in NA CHLORIDE 0.9% 100 ML IV SCH (20:13)
[2023-03-17] MEDS: ACETAMINOPHEN 325 MG TABLET PO PRN (21:38)
[2023-03-18] MEDS: NA CHLORIDE 0.9% 1,000 ML IV SCH ×5 (01:49→23:32)
[2023-03-18] MEDS: ACETAMINOPHEN 325 MG TABLET PO PRN ×2 (01:49→15:38)
[2023-03-18] MEDS: HYDROCODONE/APAP 5/325 MG TAB PO PRN ×4 (02:05→23:00)
[2023-03-18 05:20] LABS: Absolute Lymphocytes (CBC) 1.7 K/uL (0.7-4.9); Hematocrit 25.6 % (36.0-45.0); Lymphocytes % 10.7 % (15.3-44.8); MCV 86.9 fL (80-100); MPV 7.6 fL (7.6-11.3); Platelets 207 thou/uL (152-406); RBC Red Blood Cell Count 2.94 M/uL (3.86-4.86)
[2023-03-18 05:27] LABS: Magnesium 1.5 mg/dL (1.6-2.4)
[2023-03-18] MEDS ORDERED: Magnesium Sulfate 2gm IVPB 2 G/50 ML BAG IV ONE (06:33)
[2023-03-18 07:51] LABS: Ferritin 151.9 ng/mL (8-388); Transferrin 139 mg/dL (200-360)
[2023-03-18 07:52] LABS: Iron < 10.0 ug/dL (50-170)
[2023-03-18] MEDS ORDERED: POTASSIUM CL SA 10 MEQ TAB PO ONE ×2 (09:00→16:46)
[2023-03-18] MEDS ORDERED: MELATONIN 5 MG TABLET PO PRN (09:04)
[2023-03-18] MEDS: ENOXAPARIN 40 MG/0.4 ML SQ SCH (09:08)
[2023-03-18] MEDS: CEFTRIAXONE 2,000 MG in NA CHLORIDE 0.9% 100 ML IV SCH (09:08)
--- NOTE | 2023-03-18 13:18 | P.PN ---
Date of Service: 03/18/23 Subjective: Still having nausea, fevers overnight ROS: 10 point ROS as noted above, otherwise negative Physical exam GEN: Alert, oriented, NAD HEENT: Normal conjunctiva, sclera anicteric CV: Regular rate and rhythm, no edema Pulm: Nonlabored respirations on room air ABD: Soft, nontender, nondistended MSK: No joint tenderness Integumentary: No rashes Neuro: Normal speech, normal affect Vitals reviewed Assessment: Sepsis secondary to left-sided pyelonephritis Hypokalemia Iron deficiency anemia Plan: Sepsis secondary to left-sided pyelonephritis Lactate less than 2, currently no hypotension continue IV fluids Blood cultures obtained in ED before antibiotic administration continue empiric antibioticsRocephin follow blood cultures and urine cultures Hypokalemia Repleted in ED Potassium protocol placed Iron deficiency anemia Reports heavy menstrual cycles Hemoglobin today is 9.0 Iron levels less than 10, TIBC 195, transferrin 139, transferrin sat 5.1 Will hold off on starting iron until out of the acute infectious phase DVT PPX: Lovenox Code status: Full Discharge Plan: Home Plan to discharge in: 48 Hours Time Spent Managing Pts Care (In Minutes): 35 still having nausea <Iván Fink - Last Filed: 03/18/23 13:16> patient seen and examined on rounds with NUCLEAR POWERPLANT MECHANIC HELPER Danae this morning feels slightly better continues with fever leukocytosis improving renal fxn stable/normal noted to be anemic; pt reports heavy menses history workup consistent with severe iron deficiency continue rocephin, f/u cultures <Tong Pérez - Last Filed: 03/18/23 22:55>
[2023-03-18] MEDS: MORPHINE 2 MG/ML SYR IV PRN ×2 (14:00→19:55)
[2023-03-18] MEDS: ONDANSETRON 4 MG/2 ML VIAL IV PRN ×2 (14:06→19:55)
[2023-03-19] MEDS: ACETAMINOPHEN 325 MG TABLET PO PRN (02:54)
[2023-03-19] MEDS: ONDANSETRON 4 MG/2 ML VIAL IV PRN (03:13)
[2023-03-19] MEDS ORDERED: ALBUTEROL 2.5 MG/3 ML NEB SOL NEB ONE (04:04)
[2023-03-19] MEDS ORDERED: IPRATROPIUM BROM 0.5MG/2.5ML NEB ONE (04:06)
[2023-03-19] MEDS: NA CHLORIDE 0.9% 1,000 ML IV SCH (06:16)
[2023-03-19] MEDS ORDERED: NA CHLORIDE 0.9% 1,000 ML IV SCH (06:48)
[2023-03-19 06:59] LABS: Absolute Lymphocytes (CBC) 1.3 K/uL (0.7-4.9); Lymphocytes % 8.3 % (15.3-44.8); MCV 86.6 fL (80-100); MPV 7.7 fL (7.6-11.3); Platelets 275 thou/uL (152-406); RBC Red Blood Cell Count 3.23 M/uL (3.86-4.86)
[2023-03-19 07:14] LABS: Magnesium 1.8 mg/dL (1.6-2.4); Potassium 3.2 mEq/L (3.5-5.1)
--- NOTE | 2023-03-19 08:38 | RAD REPORT ---
[facility] 5[facility]13 am CLINICAL HISTORY: short of breath COMPARISON: Chest Single View dated 05/02/2022 TECHNIQUE: Portable AP view of the chest. FINDINGS: Confluent patchy right mid to lower lung airspace opacities. No pneumothorax or sizable e ffusion. The cardiomediastinal contours are unremarkable. IMPRESSION: Confluent right mid to lower lung airspace opacities as above concerning for pneumonia.
[2023-03-19] MEDS ORDERED: ALBUTEROL 2.5 MG/3 ML NEB SOL NEB PRN (08:40)
[2023-03-19] MEDS ORDERED: IBUPROFEN 400 MG TAB PO PRN (08:40)
[2023-03-19] MEDS: HYDROCODONE/APAP 5/325 MG TAB PO PRN ×2 (10:24→22:34)
[2023-03-19] MEDS: ENOXAPARIN 40 MG/0.4 ML SQ SCH (10:24)
[2023-03-19] MEDS ORDERED: POTASSIUM CL SA 10 MEQ TAB PO ONE ×2 (11:55→18:14)
--- NOTE | 2023-03-19 12:29 | P.PN ---
Date of Service: 03/19/23 Subjective: Still having nausea, fevers overnight C/O cough overnight, needing NC 02 ROS: 10 point ROS as noted above, otherwise negative Physical exam GEN: Alert, oriented, NAD HEENT: Normal conjunctiva, sclera anicteric CV: Regular rate and rhythm, no edema Pulm: Nonlabored respirations on NC 02 ABD: Soft, nontender, nondistended MSK: No joint tenderness Integumentary: No rashes Neuro: Normal speech, normal affect Vitals reviewed Assessment: Sepsis secondary to left-sided pyelonephritis Acute hypoxic respiratory failure secondary to right-sided pneumonia Hypokalemia Iron deficiency anemia Plan: Sepsis secondary to left-sided pyelonephritis Lactate less than 2, currently no hypotension continue empiric antibioticsRocephin Blood cultures with no growth to date Urine culture pending Still with fevers Acute hypoxic respiratory failure secondary to right-sided pneumonia Chest x-ray with right-sided pneumonia CT chest on admission without signs pneumonia present Denies aspiration/vomiting Does report lying on the right side primarily and did receive IV fluids-possibly contributing Zithromax added, continue Rocephin Blood cultures with no growth to date Urine culture pending Hypokalemia Repleted in ED Potassium protocol placed Iron deficiency anemia Reports heavy menstrual cycles Hemoglobin today is 9.0 Iron levels less than 10, TIBC 195, transferrin 139, transferrin sat 5.1 Will hold off on starting iron until out of the acute infectious phase DVT PPX: Lovenox Code status: Full Discharge Plan: Home Plan to discharge in:2-3 days Time Spent Managing Pts Care (In Minutes): 35 still having nausea <Iván Fink - Last Filed: 03/19/23 12:27> Patient seen and examined on rounds this morning with STRUCTURAL IRON WORKER Danae overnight with increased cough and shortness of breath, noted to be mildly hypoxic on room air and placed on NC with improvement pt reports h/o asthma / reactive airway disease feeling better this morning already CXR noted RML/RLL opacities, concerning for pneumonia pt states she has noticed increased swelling of hands/feet and has favored laying on right side most of time suspect multifactorial - secondary to overload from IVF and component of possible pneumonia check CT for further eval, include abd as well given increased frequency of fevers and plateauing of leukocytosis <Tong Pérez - Last Filed: 03/19/23 22:34>
[2023-03-19] MEDS: AZITHROMYCIN IV 500 MG in NA CHLORIDE 0.9% 250 ML IVPB SCH (13:02)
[2023-03-19] MEDS: CEFTRIAXONE 2,000 MG in NA CHLORIDE 0.9% 100 ML IV SCH (13:02)
--- NOTE | 2023-03-19 17:05 | RAD REPORT ---
EXAM DESCRIPTION: CT - Chest Abdomen W Con - 03/19/2023 3:56 pm CLINICAL HISTORY: persistent fever, R/O pna/renal abscess COMPARISON: Abdomen Pelvis W Contrast dated 03/17/2023; Chest Single View dated 03/19/2023 TECHNIQUE: Thin axial CT images of the chest, and abdomen, performed following intravenous administr ation of 100mL Isovue-300. Multiplanar reformats were generated and reviewed. All CT scans are performed using dose optimization technique as appropriate and may include automated exposure control or mA/KV adjustment according to patient size. FINDINGS: Patchy alveolar opacities involving the central aspect of the right lung lobes and medial left basilar and posterior lower lobe. Moderate right and small left pleural effusions.No pericardial effusion.No intrathoracic adenopathy. Heart is normal in size The liver, spleen, pancreas, and adrenal glands are within normal limits. Stable patchy cortical hypo attenuation within the left kidney. Nonobstructive right lower renal pole 2 mm calculus again seen. N onspecific mild gallbladder wall edema. No bowel obstruction, free air, free fluid or abscess. Normal appendix. No pathologic lymphadenopath y in the abdomen or pelvis. No worrisome osseous finding. IMPRESSION: Patchy bilateral central predominant alveolar opacities worse on the right. Moderate rig ht and small left pleural effusions. Findings are compatible with multifocal pneumonia. Nonspecific mild gallbladder wall edema. This may be reactive or indicative of some fluid overload. P lease correlate clinically for acute cholecystitis. Persistent left renal cortical areas of hypoattenuation compatible with pyelonephritis. 2 mm right lo wer renal pole calculus. No evidence of obstruction.
[2023-03-19] MEDS ORDERED: FUROSEMIDE 20 MG/ 2ML VIAL IV ONE (17:23)
[2023-03-20] MEDS: HYDROCODONE/APAP 5/325 MG TAB PO PRN (06:14)
[2023-03-20 06:58] LABS: Absolute Lymphocytes (CBC) 1.3 K/uL (0.7-4.9); Hematocrit 27.3 % (36.0-45.0); Lymphocytes % 16.7 % (15.3-44.8); MCV 86.5 fL (80-100); MPV 7.9 fL (7.6-11.3); Platelets 287 thou/uL (152-406); RBC Red Blood Cell Count 3.16 M/uL (3.86-4.86)
[2023-03-20 07:13] LABS: Magnesium 1.8 mg/dL (1.6-2.4); Potassium 3.6 mEq/L (3.5-5.1)
--- NOTE | 2023-03-20 07:33 | RAD REPORT ---
EXAM DESCRIPTION: RAD - Chest Single View - 03/20/2023 6:45 am CLINICAL HISTORY: eval pneumonia, volume status COMPARISON: Chest Single View dated 03/19/2023; Chest Single View dated 05/02/2022; Chest Abdomen W Con dated 03/19/2023 FINDINGS: Lines: None. Lungs: Mild improved aeration of the right lung compared with 03/19/2023. Pleural: Small right effusion likely still remains. Cardiac: The heart size is within normal limits. Mediastinum: Within normal limits. Bones: No acute fractures. Other: None IMPRESSION: Mild improved aeration of the right lower lung compared with 03/19/2023.
[2023-03-20] MEDS ORDERED: POTASSIUM CL SA 10 MEQ TAB PO ONE (08:01)
[2023-03-20] MEDS ORDERED: MAGNESIUM SULFATE 1 gm IVPB 1 GM/100 ML BAG IV ONE (08:02)
[2023-03-20] MEDS: ENOXAPARIN 40 MG/0.4 ML SQ SCH (08:22)
[2023-03-20] MEDS ORDERED: NA CHLORIDE 0.9% 100 ML ONE (08:35)
[2023-03-20] MEDS: CEFTRIAXONE 2,000 MG in NA CHLORIDE 0.9% 100 ML IV SCH (10:13)
[2023-03-20] MEDS: AZITHROMYCIN IV 500 MG in NA CHLORIDE 0.9% 250 ML IVPB SCH (10:48)
[2023-03-20] MEDS ORDERED: AZITHROMYCIN 250 MG TAB PO SCH (11:50)
[2023-03-20] MEDS: levoFLOXacin 750 MG TAB PO SCH (12:09)
[2023-03-20] MEDS: DULERA 200/5 (MOMETASONE/FORMOTEROL) INHALER IH SCH ×2 (12:19→20:36)
--- NOTE | 2023-03-20 12:21 | P.CNS ---
Date of Consult: 03/20/23 Reason for Consult: Right lower lobe pneumonia Chief Complaint: Right lower lobe pneumonia History of Present Illness: Patient is 23 years of age started developing a fever came to the emergency room and was discharged with a diagnosis of UTI did not feel better came back again. Found to have a right lower lobe pneumonia she has poorly controlled asthma vapes at home does not use any bronchodilators planing of cough congestion Allergies Penicillins Adverse Reaction (Verified 03/17/23 19:24) Hives Sulfa (Sulfonamide Antibiotics) Adverse Reaction (Verified 03/17/23 19:26) Hives - Past Medical/Surgical History -: None -: Tonsillectomy Psychosocial/ Personal History: Works with the [employer], lives at home with family - Social History Alcohol use: No CD- Drugs: No Caffeine use: No Place of Residence: Home Review of Systems General: Weakness Respiratory: Cough, Shortness of Breath Physical Examination Temp Pulse Resp BP Pulse Ox 99.2 F 89 19 120/57 L 96 03/20/23 08:00 03/20/23 08:00 03/20/23 08:00 03/20/23 08:00 03/20/23 08:00 General: Alert HEENT: Atraumatic Neck: Supple Respiratory: Crackles/rales (Crackles at the right base) Cardiovascular: No edema, Regular rate/rhythm, Normal S1 S2 Gastrointestinal: Normal bowel sounds, Soft and benign - Problems (1) Right lower lobe pneumonia Current Visit: Yes Status: Acute Plan: Patient is 23 years of age admitted with right lower lobe pneumonia poorly controlled asthma doing better agree with p.o. levofloxacin and she will need an inhaled bronchodilator at home patient's had some fever on admission now her white count is normal cultures are all negative will discharge tomorrow follow- up with me in 2-week of note pyelonephritis imaging study cultures however were negative urine cultures also negative oxygenation vital signs stable Qualifiers: Pneumonia type: due to unspecified organism Qualified Code(s): J18.9 - Pneumonia, unspecified organism
[2023-03-20] MEDS ORDERED: FUROSEMIDE 20 MG TABLET PO ONE (12:56)
--- NOTE | 2023-03-20 14:04 | P.PN ---
Date of Service: 03/20/23 Subjective: no fevers overnight feeling better today and tolerating diet ROS: 10 point ROS as noted above, otherwise negative Physical exam GEN: Alert, oriented, NAD HEENT: Normal conjunctiva, sclera anicteric CV: Regular rate and rhythm, no edema Pulm: Nonlabored respirations on room air ABD: Soft, nontender, nondistended MSK: No joint tenderness Integumentary: No rashes Neuro: Normal speech, normal affect Vitals reviewed Assessment: Sepsis secondary to left-sided pyelonephritis Acute hypoxic respiratory failure secondary to right-sided pneumonia Hypokalemia New onset Iron deficiency anemia Plan: Sepsis secondary to left-sided pyelonephritis Lactate less than 2, currently no hypotension Switched to PO levaquin 03/20 Blood cultures with no growth to date Urine culture pending with <10,000 CFU mixed loren preliminary last fever 03/19 Acute hypoxic respiratory failure secondary to right-sided pneumonia Chest x-ray with right-sided pneumonia CT chest on admission without signs pneumonia present Denies aspiration/vomiting Does report lying on the right side primarily and did receive IV fluids-possibly contributing Switched to PO levaquin 03/20 Blood cultures with no growth to date Improved with lasix, repeat oral lasix x1 Hypokalemia Repleted in ED Potassium protocol placed New onset Iron deficiency anemia Reports heavy menstrual cycles Iron levels less than 10, TIBC 195, transferrin 139, transferrin sat 5.1 Will hold off on starting iron until out of the acute infectious phase Will need iron at DC Discussed FU with INDEPENDENT BEAUTY CONSULTANT at DC DVT PPX: Lovenox Code status: Full Discharge Plan: Home Plan to discharge in:1-2 days Time Spent Managing Pts Care (In Minutes): 35 still having nausea <Iván Fink - Last Filed: 03/20/23 14:01> Patient seen and examined on rounds this morning with MANAGER CARDIOVASCULAR Danae afebrile this morning feeling much better; breathing more clear, still diminished at RLL base off oxygen supplementation appetite improving iv lost; switch to PO levaquin cultures negative so far anticipate dc home in next 24-48hrs <Tong Pérez - Last Filed: 03/20/23 21:27>
[2023-03-21 03:14] VITALS: O2SAT 95
[2023-03-21 05:40] LABS: Absolute Lymphocytes (CBC) 1.9 K/uL (0.7-4.9); Hematocrit 25.4 % (36.0-45.0); Lymphocytes % 32.6 % (15.3-44.8); MCV 85.8 fL (80-100); MPV 7.3 fL (7.6-11.3); Platelets 319 thou/uL (152-406); RBC Red Blood Cell Count 2.95 M/uL (3.86-4.86)
[2023-03-21 05:52] LABS: Magnesium 1.9 mg/dL (1.6-2.4); Potassium 3.3 mEq/L (3.5-5.1)
[2023-03-21] MEDS: levoFLOXacin 750 MG TAB PO SCH (08:00)
[2023-03-21] MEDS: DULERA 200/5 (MOMETASONE/FORMOTEROL) INHALER IH SCH (08:01)
[2023-03-21] MEDS ORDERED: POTASSIUM CL SA 10 MEQ TAB PO ONE (09:00)
[2023-03-21 09:39] VITALS: BP 112/56; TEMP 97.3
--- NOTE | 2023-03-21 14:24 | P.DS ---
Admission Date: 03/17/23 Discharge Date: 03/21/23 Reason for Admission: Right lower lobe pneumonia Consultations: Pulmonary-Dr. Hampton Brief History of Present Illness: 23-year-old otherwise healthy female presents emergency department chief complaint of fevers, malaise. She reports has been running fevers since Tuesday Tmax 103, denies urinary symptoms did have some upper respiratory symptoms earlier in the week. She was seen in the emergency department on 03/15/2023 and prescribed Macrobid for urinary tract infection. She presented again today feeling worse with high fevers. She was evaluated in the emergency department today her labs are significant for leukocytosis white blood cell count 19.8 potassium 3.1 urinalysis concerning for urinary tract infection negative for COVID. CT abdomen pelvis with IV contrast was performed with close concerning for suspected mild to moderate left-sided abdominal. Initial lactate was 1.2 and blood cultures were obtained prior to antibiotic administration. Patient admitted for sepsis, left-sided pyelonephritis. Hospital Course: Assessment: Sepsis secondary to left-sided pyelonephritis Acute hypoxic respiratory failure secondary to right-sided pneumonia Hypokalemia New onset Iron deficiency anemia Patient was admitted to the hospital for sepsis secondary to left-sided pyelonephritis, her hospitalization was complicated with development of right- sided pneumonia. She was treated with broad-spectrum antibiotics, her urine and blood cultures did not show any growth. She has been afebrile for the last 36 hours and breathing well on room air. Repeat CT did not show any signs of renal abscess or complications from pyelonephritis, with a second improved and patient has clinically improved. She was also noted to be anemic and iron studies were performed, patient is severely iron deficient. She will be provided a prescription for iron, she does report heavy menstrual cycles and she is been instructed to follow-up with her VP ANALYTICS doctor for evaluation/management. At discharge patient will be prescribed the following medications Levofloxacin 750 mg by mouth once daily for 7 days Albuterol inhaler to be used as needed Iron 325 mg by mouth daily Please follow-up with Dr. Hampton pulmonology in 1 to 2 weeks Follow-up with VP ANALYTICS for further evaluation/management of the heavy menstrual cycles You should also establish yourself with and follow-up with your primary care doctor <Iván Fink - Last Filed: 01/22/24 14:22> Admission Date: 03/17/23 Discharge Date: 03/21/23 <BetoTong - Last Filed: 03/21/23 17:45> Disposition: ROUTINE DISCHARGE Discharge Condition: GOOD Vital Signs/Physical Exam: Temp Pulse Resp BP Pulse Ox 97.3 F 67 17 112/56 L 96 03/21/23 08:00 03/21/23 08:00 03/21/23 08:00 03/21/23 08:00 03/21/23 08:00 General: Alert, In no apparent distress, Oriented x3 HEENT: Atraumatic, PERRLA Neck: Supple, JVD not distended Respiratory: Clear to auscultation bilaterally, Normal air movement Cardiovascular: Regular rate/rhythm, Normal S1 S2 Gastrointestinal: Normal bowel sounds, No tenderness Musculoskeletal: No tenderness Integumentary: No rashes Neurological: Normal speech, Normal tone, Normal affect Laboratory Data at Discharge: WBC 5.80 thou/uL (4.3-10.9) 03/21/23 05:05 Hgb 8.8 g/dL (12.0-15.0) L 03/21/23 05:05 Hct 25.4 % (36.0-45.0) L 03/21/23 05:05 Plt Count 319 thou/uL (152-406) 03/21/23 05:05 PT 17.0 SECONDS (9.5-12.5) H 03/17/23 13:45 INR 1.57 03/17/23 13:45 Sodium 140 mEq/L (136-145) 03/21/23 05:05 Potassium 3.3 mEq/L (3.5-5.1) L 03/21/23 05:05 BUN 3 mg/dL (7-18) L 03/21/23 05:05 Creatinine 0.48 mg/dL (0.55-1.02) L 03/21/23 05:05 Glucose 108 mg/dL (74-106) H 03/21/23 05:05 Magnesium 1.9 mg/dL (1.6-2.4) 03/21/23 05:05 Total Bilirubin 0.6 mg/dL (0.2-1.0) 03/17/23 13:45 AST 20 U/L (15-37) 03/17/23 13:45 ALT 26 U/L (13-56) 03/17/23 13:45 Alkaline Phosphatase 62 U/L (45-117) 03/17/23 13:45 <Iván Fink - Last Filed: 03/21/23 14:22> Vital Signs/Physical Exam: Temp Pulse Resp BP Pulse Ox 97.3 F 67 17 112/56 L 96 03/21/23 08:00 03/21/23 08:00 03/21/23 08:00 03/21/23 08:00 03/21/23 08:00 Laboratory Data at Discharge: WBC 5.80 thou/uL (4.3-10.9) 03/21/23 05:05 Hgb 8.8 g/dL (12.0-15.0) L 03/21/23 05:05 Hct 25.4 % (36.0-45.0) L 03/21/23 05:05 Plt Count 319 thou/uL (152-406) 03/21/23 05:05 PT 17.0 SECONDS (9.5-12.5) H 03/17/23 13:45 INR 1.57 03/17/23 13:45 Sodium 140 mEq/L (136-145) 03/21/23 05:05 Potassium 3.3 mEq/L (3.5-5.1) L 03/21/23 05:05 BUN 3 mg/dL (7-18) L 03/21/23 05:05 Creatinine 0.48 mg/dL (0.55-1.02) L 03/21/23 05:05 Glucose 108 mg/dL (74-106) H 03/21/23 05:05 Magnesium 1.9 mg/dL (1.6-2.4) 03/21/23 05:05 Total Bilirubin 0.6 mg/dL (0.2-1.0) 03/17/23 13:45 AST 20 U/L (15-37) 03/17/23 13:45 ALT 26 U/L (13-56) 03/17/23 13:45 Alkaline Phosphatase 62 U/L (45-117) 03/17/23 13:45 <Tong Pérez - Last Filed: 03/21/23 17:45> Diet: Regular Activity: Ad laura Time spent managing pt's care (in minutes): 35 <Iván Fink - Last Filed: 03/21/23 14:22> Physician Review: Patient Assessed, Agree with Above Assessment and Plan (Patient seen and examined on rounds this morning. Stable for discharge home. Patient doing much better with some mild dyspnea on exertion which has been improving.) <Tong Pérez - Last Filed: 03/21/23 17:45> Home Medications: Albuterol Inhaler [Ventolin Inhaler*] 2 puff IH Q6H PRN #1 inh 03/21/23 Ferrous Sulfate [Iron] 325 mg PO DAILY #60 tab 03/21/23 levoFLOXacin [Levofloxacin] 750 mg PO DAILY 7 Days #7 tab 03/21/23 New Medications: Ferrous Sulfate [Iron] 325 mg PO DAILY #60 tab levoFLOXacin [Levofloxacin] 750 mg PO DAILY 7 Days #7 tab Albuterol Inhaler [Ventolin Inhaler*] 2 puff IH Q6H PRN #1 inh PRN Reason: Shortness Of Breath Physician Discharge Instructions: Patient was admitted to the hospital for sepsis secondary to left-sided pyelonephritis, her hospitalization was complicated with development of right- sided pneumonia. She was treated with broad-spectrum antibiotics, her urine and blood cultures did not show any growth. She has been afebrile for the last 36 hours and breathing well on room air. Repeat CT did not show any signs of renal abscess or complications from pyelonephritis, with a second improved and patient has clinically improved. She was also noted to be anemic and iron studies were performed, patient is severely iron deficient. She will be provided a prescription for iron, she does report heavy menstrual cycles and she is been instructed to follow-up with her [facility] doctor for evaluation/management. At discharge patient will be prescribed the following medications Levofloxacin 750 mg by mouth once daily for 7 days Albuterol inhaler to be used as needed Iron 325 mg by mouth daily Please follow-up with Dr. Hampton pulmonology in 1 to 2 weeks Follow-up with VP A[facility]TICS for further evaluation/management of the heavy menstrual cycles You should also establish yourself with and follow-up with your primary care doctor Followup: NONE,NONE [Primary Care Provider] -
--- NOTE | 2023-03-21 17:07 | EKG ---
Test Date: 2023-03-17 Test Time: 14:27:56 Rectifier Operator: VIKI MEASUREMENT RESULTS: Intervals: Rate: 108 WY: 148 QRSD: 90 QT: 324 QTc: 434 [facility]: P: 75 WY: 148 QRS: 97 T: 84 INTERPRETIVE STATEMENTS: Sinus tachycardia Rightward axis Borderline ECG Compared to ECG 05/02/2022 21:28:31 Right-axis deviation now present Sinus rhythm no longer present Sinus arrhythmia no longer present Electronically Signed On 03-21-23 16:56:13 COMMUTATOR REPAIRER by José Miguel Barraza
== END 2023-03-21 10:12 | disposition home or self-care (01) | DRG 871 ==
LOC: ER 13:06 → ERHOLD 16:59 → 4TH 18:17
PROVIDERS: ADMIT Hospitalist; ATTEND Hospitalist
DX: A41.9 Sepsis, unspecified organism (principal); J18.9 Pneumonia, unspecified organism; J96.01 Acute respiratory failure with hypoxia; N12 Tubulo-interstitial nephritis, not specified as acute or chronic; E87.6 Hypokalemia; D50.9 Iron deficiency anemia, unspecified; Z11.52 Encounter for screening for COVID-19
CPT/HCPCS: 36415; 71045; 71260; 74160; 74177; 80048; 80053; 81001; 82728; 83540; 83605; 83735; 84132; 84466; 85025; 85610; 87040; 87086; 87088; 87635; 93005; 94640; 96365; 96366; 96375; 99284; J0696; J1650; J1940; J2270; J2405; J3475; J3535; J7030; J7050; J7613; J7644; Q9967

== ENCOUNTER 2023-12-03 12:28 | Emergency (ER) | payer OTHER ==
--- NOTE | 2023-12-03 12:54 | EDPHYS ---
Physician Documentation [facility] Name: Alecia Singer Age: 23 yrs Sex: Female : 2000 Arrival Date: 12/03/2023 Time: 12:28 Bed 2 Private MD: ED Physician Jhony Samuels HPI: 12/02 12:45 This 23 yrs old Female presents to ER via Ambulatory with complaints of Sore dr5 Throat, Cough - blood, Ear Pain. 12:45 The patient presents with sore throat. Onset: The symptoms/episode began/occurred 3 dr5 day(s) ago. Pt reports she woke up this morning with right ear pain.. 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 - Infectious Disease History:: Denies. - Social history:: Smoking status: Reported history of juuling and/or vaping. ROS: 12:45 Constitutional: as per hpi dr5 Exam: 12:45 Constitutional: This is a well developed, well nourished patient who is awake, alert, dr5 and in no acute distress. Head/Face: Normocephalic, atraumatic. Neck: Trachea midline, no thyromegaly or masses palpated, and no cervical lymphadenopathy. Supple, full range of motion without nuchal rigidity, or vertebral point tenderness. No Meningismus. Chest/axilla: Normal chest wall appearance and motion. Nontender with no deformity. No lesions are appreciated. Cardiovascular: Regular rate and rhythm with a normal S1 and S2. Normal PMI, no JVD. No pulse deficits. Respiratory: Lungs have equal breath sounds bilaterally, clear to auscultation. No rales, rhonchi or wheezes noted. No increased work of breathing, no retractions or nasal flaring. Skin: Warm, dry with normal turgor. Normal color with no rashes, no lesions, and no evidence of cellulitis. MS/ Extremity: Pulses equal, no cyanosis. Neurovascular intact. Full, normal range of motion. Neuro: Awake and alert, GCS 15, oriented to person, place, time, and situation. Cranial nerves II-XII grossly intact. Motor strength 5/5 in all extremities. Sensory grossly intact. Cerebellar exam normal. Normal gait. 12:45 ENT: Ear canal(s): TM's: bulging, on the right, decreased mobility, on the right, dullness, on the right, erythema, on the right, Examination of the other ear shows no obvious abnormality, Vital Signs: 12:40 BP 124 / 72; Pulse 64; Resp 16; Temp 98.5; Pulse Ox 100% on R/A; Weight 76.2 kg; Height iw 5 ft. 2 in. ; 12:40 Body Mass Index 30.73 (76.20 kg, 157.48 cm) iw MDM: 12:34 Patient medically screened. dr5 12:45 Differential diagnosis: Allergic rhinitis, tonsillitis, Otitis Media. Data reviewed: dr5 vital signs, nurses notes. Consideration of Admission/Observation Escalation of care including admission/observation considered. Admit for ROVING SIZER if noted on exam. Care significantly affected by the following chronic conditions: Anemia. Care significantly affected by the following Social Determinants of Health: Poor access to healthcare and/or lack of insurance. Counseling: I had a detailed discussion with the patient and/or guardian regarding the historical points, exam findings, and any diagnostic results supporting the discharge/admit diagnosis, the need for outpatient follow up, for definitive care, a family practitioner, to return to the emergency department if symptoms worsen or persist or if there are any questions or concerns that arise at home. Admission orders: after a detailed discussion of the patient's condition and case, the admit orders are written by me. ED course: Pt coming in with otitis media to right ear. Will give Doxycycline with close PCP follow up.. Administered Medications: No medications were administered Disposition: 14:05 Co-signature as Attending Physician, Jhony Samuels MD I reviewed the patient's care rt provided by the Advanced Practice Provider and agree with the diagnosis and treatment plan. Disposition Summary: 12/03/23 12:54 Discharge Ordered Notes: Location: Home dr5 Condition: Stable dr5 Diagnosis - Acute serous otitis media, right ear dr5 Followup: dr5 - With: Emergency Department - When: As needed - Reason: Worsening of condition Followup: dr5 - With: Private Physician - When: 2 - 3 days - Reason: Recheck today's complaints, Continuance of care, Re-evaluation by your physician Discharge Instructions: - Discharge Summary Sheet dr5 Forms: - Medication Reconciliation Form dr5 - Antibiotic Education dr5 - Patient Portal Instructions dr5 - Leadership Thank You Letter dr5 Prescriptions: - Doxycycline Hyclate 100 mg Oral Tablet - take 1 tablet ORAL route every 12 hours; 20 tablet; Refills: 0, Product dr5 Selection Permitted Signatures: Jeanette Wolfe RN RN iw Jhony Samuels MD MD rt Manuel Andujar, MALARIOLOGIST-C MALARIOLOGIST-Cdr5
--- NOTE | 2023-12-03 12:54 | ER ---
Nurse's Notes [facility] Name: Alecia Singer Age: 23 yrs Sex: Female : 2000 Arrival Date: 12/03/2023 Time: 12:28 Bed 2 Private MD: Diagnosis: Acute serous otitis media, right ear Presentation: 12/02 12:42 Chief complaint: Patient states: coughing up mucous, woke up with right ear pain, feels iw like she has a sinus infection. Coronavirus screen: Client presents with at least one sign or symptom that may indicate coronavirus-19. Ebola Screen: No symptoms or risks identified at this time. Initial Sepsis Screen: Does the patient meet any 2 criteria? No. Patient's initial sepsis screen is negative. Does the patient have a suspected source of infection? No. Patient's initial sepsis screen is negative. Risk Assessment: Do you want to hurt yourself or someone else? Patient reports no desire to harm self or others. 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 - Infectious Disease History:: Denies. - Social history:: Smoking status: Reported history of juuling and/or vaping. Screenin:48 [facility] ED Fall Risk Assessment (Adult) History of falling in the last 3 months, jl7 including since admission No falls in past 3 months (0 pts) Confusion or Disorientation No (0 pts) Intoxicated or Sedated No (0 pts) Impaired Gait No (0 pts) Mobility Assist Device Used No (0 pt) Altered Elimination No (0 pt) Score/Fall Risk Level 0 - 2 = Low Risk Oriented to surroundings, Maintained a safe environment. Abuse screen: Denies threats or abuse. Denies injuries from another. Nutritional screening: No deficits noted. Tuberculosis screening: No symptoms or risk factors identified. Assessment: 12:48 General: Appears in no apparent distress. uncomfortable. Pain: Complains of pain in jl7 THROAT. Neuro: Level of Consciousness is awake, alert, obeys commands, Oriented to person, place, time, situation. Cardiovascular: Patient's skin is warm and dry. Respiratory: Airway is patent Respiratory effort is even, unlabored, Respiratory pattern is regular, symmetrical, NOT AUSCULTATED. EENT: Throat is clear. Derm: Skin is pink, warm \T\ dry. Vital Signs: 12:40 BP 124 / 72; Pulse 64; Resp 16; Temp 98.5; Pulse Ox 100% on R/A; Weight 76.2 kg; Height iw 5 ft. 2 in. ; 12:40 Body Mass Index 30.73 (76.20 kg, 157.48 cm) iw ED Course: 12:30 Patient arrived in ED. im 12:34 Manuel Andujar FNP-C [facility]. dr5 12:34 Jhony Samuels MD is Attending Physician. dr5 12:43 Triage completed. iw 12:43 Arm band placed on. iw 12:48 Patient has correct armband on for positive identification. Provided Education on: jl7 DISCHARGE. 12:53 Justo Gillis, RN is Primary Nurse. jl7 13:01 No provider procedures requiring assistance completed. Patient did not have IV access jl7 during this emergency room visit. Administered Medications: No medications were administered Medication: 12:48 VIS not applicable for this client. jl7 Outcome: 12:54 Discharge ordered by MD. dr5 13:01 Discharged to home ambulatory, jl7 13:01 Condition: stable 13:01 Discharge instructions given to patient, Instructed on discharge instructions, follow up and referral plans. medication usage, Demonstrated understanding of instructions, follow-up care, medications, Prescriptions given X 1, 13:02 Patient left the ED. jl7 Signatures: Jeanette Wolfe RN RN Justo Gillis RN RN jl7 Linnette Sheridan Manuel Andujar FNP-C SWITCHBOARD OPERATOR RECEPTIONIST-Cdr5 Corrections: (The following items were deleted from the chart) 12:41 12:40 Pulse 64bpm; Resp 16bpm; Pulse Ox 100% RA; Temp 98.5F; iw iw
[2023-12-03 13:07] VITALS: BP 124/72; TEMP 98.5; O2SAT 100
== END 2023-12-03 13:02 | disposition home or self-care (01) ==
LOC: ER 12:28
DX: H65.01 Acute serous otitis media, right ear (principal)
CPT/HCPCS: 99283